=== PATIENT | female | born 1975 | race Caucasian/White ===

== ENCOUNTER → 2016-10-17 | Outpatient (CLI) | payer BC ==
--- NOTE | 2016-10-17 09:10 | US ---
EXAMINATION TYPE: US abdomen complete DATE OF EXAM: 10/17/2016 8:23 AM COMPARISON: NONE CLINICAL HISTORY: R10.84 Abd Pain. Right back pain and heartburn; large body habitus EXAM MEASUREMENTS: Liver Length: 15.9 cm Gallbladder Wall: 0.2 cm CBD: 0.3 cm Spleen: 10.5 cm Right Kidney: 10.9 x 6.2 x 4.6 cm Left Kidney: 10.3 x 6.2 x 5.3 cm Pancreas: hyperechoic Liver: fatty as is hyperechoic to right renal cortex and liver is posteriorly attenuated Gallbladder: wnl Evidence for sonographic Espino's sign: No CBD: wnl Spleen: wnl Right Kidney: No hydronephrosis or masses seen Left Kidney: No hydronephrosis or masses seen Upper IVC: Proximal portion normal Abd Aorta: wnl IMPRESSION: 1. Normal abdomen ultrasound
== END | disposition home or self-care (01) ==
LOC: RADUSWWP 07:44
PROVIDERS: ATTEND Internal Medicine
DX: R10.84 Generalized abdominal pain (principal)
CPT/HCPCS: 76700

== ENCOUNTER → 2016-10-28 | Outpatient (CLI) | payer BC ==
--- NOTE | 2016-10-28 09:12 | NM ---
EXAMINATION TYPE: NM hepatobiliary w EF DATE OF EXAM: 10/28/2016 9:06 AM COMPARISON: NONE HISTORY: Abdominal pain TECHNIQUE: After the intravenous administration of 5.5 mCi Tc 99m Mebrofenin hepatobiliary scintigrap hy is performed. Immediate images post injection. FINDINGS: There is satisfactory initial accumulation of tracer by the liver. The gallbladder is visualized wit hin 14 minutes. The small bowel activity is noted within 12 minutes. At one hour 8 ounces of oral e nsure plus is given to mimic CCK and gallbladder ejection fraction is calculated at 76 %, in the norm al range. Therefore there is no scintigraphic evidence of cystic or common bile duct obstruction to suggest acute cholecystitis or gallbladder dyskinesia. IMPRESSION: Exam is within normal limits.
== END | disposition home or self-care (01) ==
LOC: RADNMMAIN 06:50
PROVIDERS: ATTEND Internal Medicine
DX: R10.84 Generalized abdominal pain (principal)
CPT/HCPCS: 78226; A9537

== ENCOUNTER → 2019-03-05 | Outpatient (CLI) | payer BC ==
--- NOTE | 2019-03-05 07:26 | US ---
EXAMINATION TYPE: US liver DATE OF EXAM: 03/05/2019 COMPARISON: US 2017 CLINICAL HISTORY: R94.5 Abnormal Lifer function tests. EXAM MEASUREMENTS: Liver Length: 15.7 cm Gallbladder Wall: 0.1 cm CBD: 0.3 cm Right Kidney: 11.6 x 5.5 x 4.3 cm Pancreas: Unremarkable Liver: Increased attenuation, decreased visualization of vessels suggestive of fatty infiltrate. Thi s finding limits evaluation for underlying hepatic masses. Gallbladder: wnl Evidence for sonographic Espino's sign: No CBD: wnl Right Kidney: wnl Liver is nonenlarged. No hydronephrosis of the right kidney. No cholelithiasis or pericholecystic flu id. No sonographic evidence of acute cholecystitis. IMPRESSION: Sonographic findings most commonly related to hepatic steatosis. Correlate with liver fun ction test results.
== END | disposition home or self-care (01) ==
LOC: RADUSWWP 06:54
PROVIDERS: ATTEND Internal Medicine
DX: R94.5 Abnormal results of liver function studies (principal)
CPT/HCPCS: 76705

== ENCOUNTER → 2022-06-06 | Outpatient (CLI) | payer BC ==
--- NOTE | 2022-06-06 21:40 | CT ---
EXAMINATION TYPE: CT abdomen pelvis wo con DATE OF EXAM: 06/06/2022 HISTORY: per pt, told her she has enlarged lymph nodes in the abdomen CT DLP: 1384.40 mGycm. Automated Exposure Control for Dose Reduction was Utilized. TECHNIQUE: CT scan of the abdomen and pelvis is performed without oral or IV contrast. COMPARISON: NONE FINDINGS: Within the limitations of a non-contrast study, the following observations are made. LUNG BASES: No significant abnormality is appreciated. LIVER/GB: Liver is heterogeneously hypodense suggesting fatty infiltrative hepatocellular disease. PANCREAS: No significant abnormality is seen. SPLEEN: No significant abnormality is seen. ADRENALS: No significant abnormality is seen. KIDNEYS: Possible nonobstructing 1 to 2 mm calculus right kidney coronal image 55 midpole level. No l eft-sided nephrolithiasis. No hydronephrosis seen bilaterally. BOWEL: Normal-appearing appendix. GENITAL ORGANS: Anteverted uterus . LYMPH NODES: No greater than 1cm abdominal or pelvic lymph nodes are appreciated. OSSEOUS STRUCTURES: Moderate to severe narrowing and disc space narrowing lumbosacral junction.. OTHER: No significant additional abnormality is seen. IMPRESSION: No suspicious adenopathy. No intra-abdominal ascites.
== END | disposition home or self-care (01) ==
LOC: RADCTMAIN 17:27
PROVIDERS: ATTEND Internal Medicine
DX: R59.0 Localized enlarged lymph nodes (principal)
CPT/HCPCS: 74176